=== PATIENT | male | born 1955 | race Caucasian/White ===

== ENCOUNTER 2020-07-25 02:11 | Emergency (ER) | payer OTHER ==
[2020-07-25 02:18] VITALS: BP 154/102; PULSE 68; BMI 30.1
[2020-07-25] MEDS ORDERED: ONDANSETRON *ODT* 4 MG TABLET ONE (02:20)
[2020-07-25] MEDS ORDERED: ONDANSETRON *ODT* 4 MG TABLET SL ONE (02:22)
[2020-07-25] MEDS ORDERED: MECLIZINE HCL 25 MG TABLET (FP) PO ONE (02:22)
[2020-07-25] MEDS ORDERED: MECLIZINE HCL 25 MG TABLET (FP) ONE (02:27)
== END 2020-07-25 04:13 | disposition home or self-care (01) ==
LOC: FER 02:11
DX: R42 Dizziness and giddiness (principal)
CPT/HCPCS: 99284-25; Q0162